=== PATIENT | male | born 1975 | race Caucasian/White ===

== ENCOUNTER → 2019-04-19 08:02 | Outpatient (BNVA) | payer BC, SELFPAY | PROVIDERS: Family Provider Family Medicine; PCP Family Medicine; Visit Provider Nurse Practitioner Family | DX: J10.1 Influenza due to other identified influenza virus with other respiratory manifestations (principal); R05 Cough | CPT/HCPCS: 87804 ==

== ENCOUNTER → 2019-09-18 15:34 | Outpatient (BNVA) | payer BC, SELFPAY | PROVIDERS: Family Provider Family Medicine; PCP Family Medicine; Referring Provider Nurse Practitioner Family; Visit Provider Orthopaedic Surgery | DX: M25.569 Pain in unspecified knee (principal); M17.12 Unilateral primary osteoarthritis, left knee | CPT/HCPCS: 73560; 73565 ==

== ENCOUNTER 2019-11-14 15:34 | Emergency (ER) | payer BC, SELFPAY ==
[2019-11-14 15:37] VITALS: BP 184/133; PULSE 95; RESP 16; TEMP 36.5; O2SAT 98; BMI 34.7
--- NOTE | 2019-11-14 15:47 | XR_ITS ---
WS: [id number] EXAM: LEFT HAND: 3 VIEWS DATE OF EXAMINATION: 11/14/2019, 1612 hours COMPARISON: None. HISTORY: Patient is 44 years old with multiple lacerations from a fan blade. FINDINGS: Bone density is normal in appearance. There are slight changes of arthritis at the triscaphe articula tion and first carpometacarpal articulation. Foreshortened fourth metacarpal bone is considered a con genital variant of normal. Ornamental jewelry on the fourth finger is seen. Bandages overlying the se cond and third fingers. Soft tissue injury involving the distal tip of the second finger noted. No ac parker bony injury seen. XR/XR hand LT min 3V* [id number] IMPRESSION: No acute bony abnormality. Soft tissue injury involving the second finger.
[2019-11-14] MEDS: acetaminophen 500 mg Tablet 1000 MG PO (15:53)
[2019-11-14] MEDS: lidocaine 1% INJ 20 mL INJECTION (16:57)
[2019-11-14 17:53] VITALS: BP 185/90; PULSE 87; RESP 18; O2SAT 98
--- NOTE | 2019-11-14 17:53 | W.ED.WOUNDLC ---
HPI - Wound/Laceration General: Chief Complaint: Wound/Laceration Stated Complaint: hand lac Time Seen by Provider: 11/14/19 15:40 History of Present Illness: HPI narrative: This patient is a 44 year old male who got his hand caught in a fan blade on a heating and cooling unit. Extremity Location: Left: hand Place: work Patient tetanus UTD: Yes Context: accidental Associated symptoms: Reports no associated symptoms Review of Systems Musc: Reports: extremity pain Neuro: Denies: dizziness Gabriel/Lymph: Denies: easy bruising or easy bleeding Physical Exam Const: COMMON NORMALS: no acute distress, patient oriented x3, no limitations and alert GENERAL APPEARANCE: cooperative and comfortable HENMT: HEAD & SCALP: normal to inspection FACE & SINUS: normal facial exam Eye: GENERAL EYE: appearance normal, both eyes and all related structures Neck/C-Spine: COMMON NORMALS: supple, no meningeal signs and no JVD Chest: COMMONS NORMALS: normal inspection of the chest Resp: COMMON NORMALS: normal respiratory effort, No use of accessory muscles and clear to auscultation bilaterally AUSCULTATION: clear to auscultation bilaterally Cardio: COMMON NORMALS: no JVD, regular rate and regular rhythm RATE: regular rate RHYTHM: regular rhythm Back/Pelvis: COMMON NORMALS: thoracic and lumbar spine normal to inspection Extremity: GENERAL: Yes normal exam except as noted LEFT UPPER EXTREMITY: Yes hand & digits (Multiple lacerations. One on the thumb on the thenar eminence. One on the third finger on the dorsal surface across the PIP joint. There is a second slightly distal to that and more on the radial side. On the index finger there is a distal piece of fingernail which is avulsed with exposed nailbed but no laceration. There is a superficial laceration on the ulnar aspect of the fourth digit.) Left hand and digits: Yes neurovascular exam (Intact with the exception of numbness on the tip of the third digit) and Yes tendon exam (Intact) Neuro: COMMON NORMALS: patient oriented x3, moves all extremities, no focal motor deficits and no sensory deficits noted SENSORIUM/ORIENTATION: Yes alert MENINGEAL SIGNS: Yes no meningeal signs Psych: COMMON NORMALS: mental status grossly normal, cooperative and normal affect Skin: COMMON NORMALS: no rashes or lesions noted and turgor normal GENERAL SKIN EXAM: no rashes or lesions noted and turgor normal Procedures Laceration Laceration 1: Site: hand (Thenar eminence, base of thumb) Side (If applicable): left Size (cm): 1.3 Description: linear Depth: simple, single layer Local Anesthetic: lidocaine 1% Pre-repair: wound explored, irrigated extensively and deep structures intact Skin layer closed with: nylon Size (cm): 4-0 Number of sutures: 4 Technique: simple, interrupted Laceration 2: Site: hand (Third digit, dorsal aspect of the PIP) Side (If applicable): left Size (cm): 3 Description: flap and irregular Pre-repair: wound explored, irrigated extensively and deep structures intact Skin layer closed with: nylon Size (cm): 4-0 Number of sutures: 7 Technique: simple, interrupted Subcutaneous layer closed with: vicryl Size: 4-0 Number of sutures: 2 Technique: simple, interrupted Laceration 3: Site: hand (Radial aspect of the third finger distal to the PIP) Side (If applicable): left Size (cm): 1 Description: linear Depth: simple, single layer Skin layer closed with: nylon Size (cm): 4-0 Number of sutures: 3 Technique: simple, interrupted Nerve Block Nerve Block 1: Time out performed: Yes Local Anesthetic: lidocaine 1% Amount of anesthesia used (mL): 2 Side: left Nerve Blocks: digital Procedure Successful: Yes Patient Tolerated Procedure: well Complications: none Course Vital Signs: Vital signs: Vital Signs Temperature 97.7 F 11/14/19 15:37 Pulse Rate 87 11/14/19 17:53 Respiratory Rate 18 11/14/19 17:53 Blood Pressure 185/90 11/14/19 17:53 Pulse Oximetry 98 11/14/19 17:53 Discharge Plan Discharge Patient Disposition: Home Clinical Impression: Laceration Hypertension Qualifiers: Hypertension type: unspecified Qualified Code(s): I10 - Essential (primary) hypertension Condition: Stable Prescriptions: New Augmentin 875-125 mg tablet 1 tab PO BID Qty: 20 RF: 0 Discharge Orders: Discharge Order (Routine); Ordered 11/14/19 Ordered By: Latoya Rubi Referrals: Naila Tejada DO [Primary Care Provider] - Discharge Diet: Usual diet Discharge Activity: Resume usual activity Patient Instructions: Laceration (ED), Hypertension (ED) Activity Restrictions/Additional Instructions: Keep the hand clean and dry, with the wounds covered whenever you doing something more like it dirty. Limit use of the left hand for a few days. Watch for signs of infection. Keep the hand elevated and apply ice to reduce swelling. Use ibuprofen and Tylenol for pain. Sutures should be removed in about 10 to 14 days. Please follow-up with primary care provider for evaluation of your elevated blood pressure. Discharge Date/Time: 11/14/19 17:58 Coding Level of Care Code ED Assembler Small Products for Montyg Fwd Exam Comprehensive
--- NOTE | 2019-11-14 17:56 | PC.NURSE ---
Patient cut his hand while working on a AC condenser, patient presented with multiple lacerations to his left hand. Laceration to his thumb, index and middle finger. Varies sizes and condition of lacerations.
== END 2019-11-14 17:58 | disposition home or self-care (01) ==
PROVIDERS: Emergency Provider Emergency Medicine; PCP Family Medicine
DX: S61.012A Laceration without foreign body of left thumb without damage to nail, initial encounter (principal); S61.213A Laceration without foreign body of left middle finger without damage to nail, initial encounter; S61.311A Laceration without foreign body of left index finger with damage to nail, initial encounter; S61.215A Laceration without foreign body of left ring finger without damage to nail, initial encounter; I10 Essential (primary) hypertension; W31.89XA Contact with other specified machinery, initial encounter
CPT/HCPCS: 12002; 12345; 73130; 99282; 99283

== ENCOUNTER → 2020-01-03 11:17 | Outpatient (BNVA) | payer BC, SELFPAY | PROVIDERS: PCP Family Medicine; Visit Provider Nurse Practitioner Family | DX: Z11.59 Encounter for screening for other viral diseases (principal) | CPT/HCPCS: 87635 ==

== ENCOUNTER → 2020-09-08 13:15 | Outpatient (BNVA) | payer BC, SELFPAY | PROVIDERS: PCP Family Medicine; Visit Provider Registered Nurse Neonatal Intensive Care | DX: Z20.822 Contact with and (suspected) exposure to COVID-19 (principal) | CPT/HCPCS: 87635 ==

== ENCOUNTER → 2020-09-18 13:15 | Outpatient (BNVA) | payer BC, SELFPAY | PROVIDERS: PCP Family Medicine; Visit Provider Registered Nurse Neonatal Intensive Care | DX: S89.91XA Unspecified injury of right lower leg, initial encounter (principal); X58.XXXA Exposure to other specified factors, initial encounter | CPT/HCPCS: 73610 ==

== ENCOUNTER 2020-12-12 14:47 | Emergency (ER) | payer BC, SELFPAY ==
[2020-12-12 15:17] VITALS: BP 186/101; PULSE 73; RESP 18; TEMP 36.8; O2SAT 98; BMI 35.0
--- NOTE | 2020-12-12 15:39 | W.ED.CHESTPA ---
HPI - Chest Pain General: Chief Complaint: Chest Pain Stated Complaint: COVID+/INFUSION THIS AFTERNOON:HTN;SHAKY;SWEATY Time Seen by Provider: 12/12/20 15:10 History of Present Illness: HPI narrative: 45-year-old male presents to the emergency room with complaints of chest discomfort. No cardiac history. He was in the infusion clinic received Regeneron after that he began to have a little bit of chest tightness. He still has a lot of myalgias and low-grade fever. He is not complaining of any shortness of breath. MD complaint: chest heaviness and chest discomfort Onset (ago): minute(s) Timing of current episode: episodic Onset: during rest Pain location: left chest Pain radiation: none and right arm Severity: mild Quality: heaviness Relieving factors: nothing Exacerbating factors: nothing Associated symptoms: Deny abdominal pain, diaphoresis, dyspnea, fever(s), leg edema, nausea, palpitations, sense of impending doom, syncope or vomiting Treatment prior to arrival: none Review of Systems Const: Denies: fever(s) or diaphoresis ENMT: Denies: throat pain, ear or mastoid pain, nasal discharge or nasal congestion Card: Denies: palpitations or syncope Resp: Denies: dyspnea GI: Denies: abdominal pain, nausea or vomiting : Denies: flank pain, dysuria, urinary frequency or urinary urgency Skin/Breast: Denies: rash or pruritus PFSH ED PFSH: Social History Smoking and tobacco status: never smoked Quit status (tobacco): not considering quitting Alcohol intake: never Desire information about alcohol rehabilitation?: No Desire information about substance/drug rehabilitation?: No Physical Exam Const: COMMON NORMALS: no acute distress GENERAL APPEARANCE: cooperative and comfortable ORIENTATION/CONSCIOUSNESS: Yes awake and Yes oriented to time HENMT: COMMON NORMALS: normocephalic, atraumatic and hearing grossly normal bilaterally HEAD & SCALP: normocephalic and atraumatic Neck/C-Spine: COMMON NORMALS: no JVD Resp: COMMON NORMALS: normal respiratory effort, No retractions, No use of accessory muscles and clear to auscultation bilaterally AUSCULTATION: clear to auscultation bilaterally Cardio: COMMON NORMALS: no JVD, regular rate, regular rhythm and No murmurs present (Cardio) RATE: regular rate RHYTHM: regular rhythm GI: COMMON NORMALS: Soft to palpation and No hepatosplenomegaly present AUSCULTATION: Yes normoactive bowel sounds PALPATION: Yes Soft to palpation, No Tenderness to palpation present (GI), No Guarding due to palpation present (GI) and Yes No hepatosplenomegaly present Extremity: COMMON NORMALS: normal to inspection, capillary refill normal, no clubbing, cyanosis or edema, no calf tenderness and no pedal edema Neuro: SENSORIUM/ORIENTATION: Yes oriented to time Skin: COMMON NORMALS: no rashes or lesions noted GENERAL SKIN EXAM: no rashes or lesions noted Course Vital Signs: Vital signs: Vital Signs Temperature 98.2 F 12/12/20 15:17 Pulse Rate 68 12/12/20 17:37 Respiratory Rate 18 12/12/20 17:37 Blood Pressure 155/97 12/12/20 17:37 Pulse Oximetry 97 12/12/20 17:37 MDM - Chest Pain MDM Narrative: Medical decision making narrative: Labs imaging and EKG reviewed on the chart. Is not having any further symptoms he was pretty hypertensive when he first arrived. We will discharge him on amlodipine 5 mg daily encouraged him to follow-up with his primary care doc within the week to reevaluate blood pressure return if has any further problems. Lab Data: Labs: Lab Results 12/12/20 12/12/20 12/12/20 15:38 15:38 15:38 WBC 5.3 10^3/uL 10^3/ uL (4.0-10.0) RBC 5.53 10^6/uL H 10 ^6/uL (4.1-5.3) Hgb 16.8 g/dL H g/dL (11.7-16.6) Hct 46.3 % % (42.0-52.0) MCV 83.7 fl fl (80-94) MCH 30.4 pg pg (28.0-34.0) MCHC 36.3 g/dL H g/dL (30.0-36.0) RDW 12.0 % L % (12.1-15.1) Plt Count 209 10^3/cmm 10^3 /cmm (130-400) MPV 12.6 fL H fL (7.4-10.4) Neut % (Auto) 57.6 % % Lymph % (Auto) 27.6 % % [place] % (Auto) 13.0 % % Eos % (Auto) 0.8 % % Baso % (Auto) 0.8 % % Neut # (Auto) 3.05 10^3/uL 10^3 /uL (1.8-7.7) Lymph # (Auto) 1.5 10^3/uL 10^3/ uL (0.8-4.8) [place] # (Auto) 0.7 10^3/uL 10^3/ uL (0.2-0.9) Eos # (Auto) 0.0 10^3/uL 10^3/ uL (0.0-0.8) Baso # (Auto) 0.0 10^3/uL 10^3/ uL (0.0-0.1) Nucleated RBC % (a uto) 0 % % Nucleated RBCs # 0.0 /100WBC /100W BC Sodium 138 mmol/L mmol/L (136-145) Potassium 3.9 mmol/L mmol/L (3.5-5.1) Chloride 102 mmol/L mmol/L (98-107) Carbon Dioxide 23 mmol/L mmol/L (22-29) Anion Gap 16.9 (5-19) BUN 11 mg/dL mg/dL (6-20) Creatinine 0.7 mg/dL mg/dL (0.7-1.2) GFR Calculation 123.1 mL/min mL/m in (90-130) Glucose 80 mg/dL mg/dL (65-115) Calculated Osmolal ity 284 mOsm/kg L mOs m/kg (285-295) Calcium 8.7 mg/dL mg/dL (8.5-10.5) Total Bilirubin 0.5 mg/dL mg/dL (0.15-1.2) AST 67 U/L H U/L (0-40) ALT 99 U/L H U/L (0-41) Alkaline Phosphata se 148 IU/L H IU/L (40-130) Creatine Kinase 101 U/L U/L (39-308) Troponin T Baselin e 6 ng/L ng/L (0-15) Total Protein 6.6 g/dL g/dL (6.6-8.7) Albumin 4.3 g/dL g/dL (3.5-5.2) Globulin 2.3 g/dL g/dL (1.3-4.6) Discharge Plan Discharge Patient Disposition: Home Clinical Impression: COVID-19, Benign essential HTN Condition: Stable Prescriptions: New amlodipine 5 mg tablet 5 mg PO DAILY Qty: 30 RF: 0 Discharge Orders: Discharge ED (Routine); Ordered 12/12/20 Ordered By: Sukhdeep Villarreal Referrals: Naila Tejada DO [Primary Care Provider] - Discharge Diet: Usual diet Discharge Activity: Increase activity as tolerated Patient Instructions: Opioid Safety Coding Level of Care Code ED Nonprofit Fundraiser for Jaxon Fwd Exam Comprehensive
--- NOTE | 2020-12-12 15:47 | XR_ITS ---
WS: [id number] XR chest 1V portable [id number] REASON FOR EXAM: dyspnea/cough FINDINGS: The heart and mediastinum are within normal limits. Calcified granulomatous disease in both hemithoraces. No active pulmonary parenchymal pleural disease. No significant abnormality of the bony thorax. XR/XR chest 1V portable [id number] IMPRESSION: No acute chest abnormality.
--- NOTE | 2020-12-12 15:50 | ECG_ITS ---
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 Measurements Intervals [place] Rate: 72 P: 44 CO: 175 QRS: 19 QRSD: 89 T: 32 QT: 379 QTc: 415 Interpretive Statements SINUS RHYTHM No previous ECG available for comparison Electronically Signed On 12-12-2020 18:30:26 CDT by Gallito Torres M.D. [id number] f
[2020-12-12 17:14] VITALS: BP 158/103; PULSE 70; RESP 18; O2SAT 95
[2020-12-12 17:19] LABS: Albumin Level 4.3 g/dL (3.5-5.2); Alkaline Phosphatase 148 IU/L (40-130); Blood Urea Nitrogen 11 mg/dL (6-20); Calcium 8.7 mg/dL (8.5-10.5); Carbon Dioxide 23 mmol/L (22-29); Chloride 102 mmol/L (98-107); Creatine Phosphokinase 101 U/L (39-308); Globulin 2.3 g/dL (1.3-4.6); Glomerular Filtration Rate 123.1 mL/min (90-130); Glucose 80 mg/dL (65-115); Osmolality Calculated 284 mOsm/kg (285-295); Sodium 138 mmol/L (136-145); Total Bilirubin 0.5 mg/dL (0.15-1.2); Total Protein 6.6 g/dL (6.6-8.7); Troponin(5th) Baseline 6 ng/L (0-15)
[2020-12-12 17:20] LABS: Anion Gap 16.9 (5-19); Potassium 3.9 mmol/L (3.5-5.1)
[2020-12-12] MEDS: amlodipine 10 mg Tablet PO (17:22)
[2020-12-12 17:23] LABS: Basophils % 0.8 %; Eosinophils % 0.8 %; Hematocrit 46.3 % (42.0-52.0); Hemoglobin 16.8 g/dL (11.7-16.6); Lymphocytes # 1.5 10^3/uL (0.8-4.8); Lymphocytes % 27.6 %; Mean Corpuscular HGB Conc 36.3 g/dL (30.0-36.0); Mean Corpuscular Hemoglobin 30.4 pg (28.0-34.0); Mean Corpuscular Volume 83.7 fl (80-94); Mean Platelet Volume 12.6 fL (7.4-10.4); Monocytes # 0.7 10^3/uL (0.2-0.9); Neutrophils # 3.05 10^3/uL (1.8-7.7); Neutrophils % 57.6 %; Nucleated Red Blood Cells % 0 %; Platelet Count 209 10^3/cmm (130-400); Red Blood Count 5.53 10^6/uL (4.1-5.3); White Blood Count 5.3 10^3/uL (4.0-10.0)
[2020-12-12 17:30] LABS: Alanine Aminotransferase 99 U/L (0-41); Aspartate Amino Transferase 67 U/L (0-40)
[2020-12-12 17:37] VITALS: BP 155/97; PULSE 68; RESP 18; O2SAT 97
== END 2020-12-12 17:37 | disposition home or self-care (01) ==
PROVIDERS: Emergency Provider Family Medicine; PCP Family Medicine
DX: U07.1 COVID-19 (principal); I10 Essential (primary) hypertension
CPT/HCPCS: 71045; 80053; 82550; 84484; 85025; 93005; 99283

== ENCOUNTER → 2020-12-31 17:00 | Outpatient (BNVA) | payer BC, SELFPAY | PROVIDERS: PCP Family Medicine; Visit Provider Family Medicine | DX: Z13.220 Encounter for screening for lipoid disorders (principal); I10 Essential (primary) hypertension; Z13.6 Encounter for screening for cardiovascular disorders | CPT/HCPCS: 80061 ==

== ENCOUNTER → 2021-03-11 14:56 | Outpatient (BNVA) | payer BC, SELFPAY | PROVIDERS: PCP Family Medicine; Visit Provider Nurse Practitioner Family | DX: Z20.822 Contact with and (suspected) exposure to COVID-19 (principal) | CPT/HCPCS: 87635 ==

== ENCOUNTER → 2022-01-28 08:42 | Outpatient (BNVA) | payer BC, SELFPAY | PROVIDERS: PCP Family Medicine; Visit Provider Family Medicine | DX: I10 Essential (primary) hypertension (principal); Z13.220 Encounter for screening for lipoid disorders; Z13.6 Encounter for screening for cardiovascular disorders; R53.83 Other fatigue | CPT/HCPCS: 80053; 80061; 84443 ==

== ENCOUNTER 2023-06-03 18:49 | Emergency (ER) | payer OTHER, SELFPAY ==
[2023-06-03 18:50] VITALS: BP 173/132; PULSE 90; RESP 18; TEMP 36.7; O2SAT 100; BMI 36.0
--- NOTE | 2023-06-03 18:51 | ECG_ITS ---
[facility] Test Date: 2023-06-03 Pat Name: James Rdz Department: Room: Gender: Male Broadcast Director Operations: : 1975 Requested By: Rupal Sanchez Order Number: [id number] Chelsie MD: Gallito Torres M.D. Measurements Intervals [place] Rate: 92 P: 16 MI: 162 QRS: 4 QRSD: 90 T: 46 QT: 353 QTc: 439 Interpretive Statements SINUS RHYTHM Compared to ECG 12/12/2020 15:20:28 No significant changes Electronically Signed On 06-05-2023 11:12:49 CDT by Gallito Torres M.D. [id number] f
--- NOTE | 2023-06-03 18:58 | XRR_ITS ---
PROCEDURE INFORMATION: Exam: XR Chest Exam date and time: 06/03/2023 7:02 PM Age: 48 years old Clinical indication: Chest pressure; Patient HX: C/O chest pain TECHNIQUE: Imaging protocol: Radiologic exam of the chest. Views: 1 view. COMPARISON: CR XR chest 1V portable [id number] 12/12/2020 3:57 PM FINDINGS: Lungs: Unremarkable. No consolidation. Pleural spaces: Unremarkable. No pleural effusion. No pneumothorax. Heart/Mediastinum: Unremarkable. No cardiomegaly. Bones/joints: Unremarkable. XR/XR chest 1V portable [id number] IMPRESSION: No acute findings.
--- NOTE | 2023-06-03 19:01 | W.ED.CHESTPA ---
HPI - Chest Pain General: Chief Complaint: Chest Pain Stated Complaint: High Blood Pressure\Chest Pains Time Seen by Provider: 06/03/23 18:55 History of Present Illness: 48-year-old man who presents the emergency room with chest pain and hypertension. He says he has not been feeling well for the last couple days. He has had some congestion. The chest pain has been present for couple of days. Left-sided and sharp. Mild cough. Checked his blood pressure at home and it was 220/115. At that point his decided he needed to come to the emergency room. He takes amlodipine at night. No other medications. No heart disease. No altered mental status. No fevers. He did miss work yesterday because he did not feel well. Review of Systems Narrative: Constitutional symptoms: Negative except as documented in HPI. Skin symptoms: Negative except as documented in HPI. Eye symptoms: Negative except as documented in HPI. ENMT symptoms: Negative except as documented in HPI. Respiratory symptoms: Negative except as documented in HPI. Cardiovascular symptoms: Negative except as documented in HPI. Gastrointestinal symptoms: Negative except as documented in HPI. Genitourinary symptoms: Negative except as documented in HPI. Musculoskeletal symptoms: Negative except as documented in HPI. Neurologic symptoms: Negative except as documented in HPI. Psychiatric symptoms: Negative except as documented in HPI. Endocrine symptoms: Negative except as documented in HPI. [facility] ED PFSH: Social History Smoking and tobacco/nicotine status: never used tobacco/nicotine Quit status (tobacco/nicotine): not considering quitting Alcohol intake: never Substance/Drug Use: never Physical Exam Narrative: EXAM NARRATIVE: General: Alert, no acute distress. Skin: Warm, dry. Head: Normocephalic, atraumatic. Neck: Supple, trachea midline. Eye: Extraocular movements are intact. Ears, nose, mouth and throat: mucosa moist. Cardiovascular: Regular, Normal peripheral perfusion. Respiratory: Lungs are clear to auscultation, respirations are non-labored, breath sounds are equal, Symmetrical chest wall expansion. Gastrointestinal: Soft, Nontender, Non distended, Normal bowel sounds. Musculoskeletal: Normal ROM, no deformity. Neurological: Alert and oriented, No focal neurological deficit observed. Psychiatric: Cooperative, appropriate mood & affect. Course Vital Signs: Vital signs: Vital Signs Temperature 98.0 F 06/03/23 18:50 Pulse Rate 79 06/03/23 20:03 Respiratory Rate 13 06/03/23 19:41 Blood Pressure 167/87 06/03/23 19:41 Pulse Oximetry 96 06/03/23 20:03 Oxygen Delivery Me thod Room Air 06/03/23 18:50 MDM - Chest Pain Medical Decision Making Differential diagnosis for patient with chest pain includes but is not limited to and based on the above HPI, review of systems and physical exam: Pneumonia. unstable angina. angina. Acute coronary syndrome / GA. Pulmonary embolism. Costochondritis / musculoskeletal. Pleurisy. Pericarditis. Esophageal spasm. Pancreatis. Cholecystitis. Workup: Lab work, chest X-ray and EKG ordered to evaluate, rule in and rule out above pathologies. Lab Review: Laboratory results were reviewed and interpreted by myself the emergency room physician. No leukocytosis. Hemoglobin is 15.5. BUN and creatinine are 11 and 0.8. Flu and COVID are negative. Serial troponins are negative. EKG: Time 1851 PM rate 92. Normal sinus rhythm, No ST-T changes, no ectopy, normal DE & QRS intervals, This was reviewed and interpreted by myself the ER physician at 1855 PM. Chest x-ray: No acute process. No infiltrate. No pneumothorax. No cardiomegaly. This was reviewed and interpreted by myself the ER physician. Reexamination: Patient is in no distress. He does have some tenderness to palpation of his chest wall. No increased work of breathing. No altered mental status. Emergency Department Assessment of Chest Pain Score (EDACS) from [email or web address] on 06/03/2023 All calculations should be rechecked by clinician prior to use RESULT SUMMARY: 4 points Low risk by the EDACS Score. If the patient also has: (1) EKG without new ischemic changes and (2) negative initial and 2-hour troponins, then this patient is safe for discharge to early outpatient follow-up investigation (or proceed to earlier inpatient testing). If EKG with ischemic changes or positive troponin, they are not low risk and require normal risk stratification. INPUTS: Age ?> 48 years Sex ?> 6 = Male Known coronary artery disease or >= risk factors ?> 0 = No Diaphoresis ?> 0 = No Pain radiates to arm, shoulder, neck, or jaw ?> 0 = No Pain occurred or worsened with inspiration ?> 0 = No Pain is reproduced by palpation ?> -6 = Yes Lab Data 06/03/23 19:10 06/03/23 19:10 Radiology Impressions Chest X-Ray 06/03/23 18:58 IMPRESSION: No acute findings. Laboratory Results WBC 9.78 10^3/uL (3.29-11.43) 06/03/23 19:10 RBC 5.09 10^6/uL (3.85-5.65) 06/03/23 19:10 Hgb 15.50 g/dL (11.27-16.99) 06/03/23 19:10 Hct 43.9 % (37-53) 06/03/23 19:10 MCV 86.2 fl (82-101) 06/03/23 19:10 MCH 30.5 pg (27-33) 06/03/23 19:10 MCHC 35.3 g/dL (30-55) 06/03/23 19:10 RDW 11.7 % (12.1-15.1) L 06/03/23 19:10 Plt Count 267 10^3/cmm (157-399) 06/03/23 19:10 MPV 10.8 fL (7.4-10.4) H 06/03/23 19:10 Neut % (Auto) 60.7 % 06/03/23 19:10 Lymph % (Auto) 27.1 % 06/03/23 19:10 [place] % (Auto) 10.3 % 06/03/23 19:10 Eos % (Auto) 0.8 % 06/03/23 19:10 Baso % (Auto) 0.7 % 06/03/23 19:10 Neut # (Auto) 5.93 10^3/uL (1.8-7.7) 06/03/23 19:10 Lymph # (Auto) 2.7 10^3/uL (0.8-4.8) 06/03/23 19:10 [place] # (Auto) 1.0 10^3/uL (0.2-0.9) H 06/03/23 19:10 Eos # (Auto) 0.1 10^3/uL (0.0-0.8) 06/03/23 19:10 Baso # (Auto) 0.1 10^3/uL (0.0-0.1) 06/03/23 19:10 Nucleated RBC % (auto) 0 % 06/03/23 19:10 Nucleated RBCs # 0.0 /100WBC 06/03/23 19:10 Sodium 140 mmol/L (136-145) 06/03/23 19:10 Potassium 3.3 mmol/L (3.5-5.1) L 06/03/23 19:10 Chloride 103 mmol/L (98-107) 06/03/23 19:10 Carbon Dioxide 23 mmol/L (22-29) 06/03/23 19:10 Anion Gap 17.3 (5-19) 06/03/23 19:10 BUN 11 mg/dL (6-20) 06/03/23 19:10 Creatinine 0.8 mg/dL (0.7-1.2) 06/03/23 19:10 GFR Calculation 104.1 mL/min (90-130) 06/03/23 19:10 Glucose 98 mg/dL (65-115) 06/03/23 19:10 Calculated Osmolality 289 mOsm/kg (285-295) 06/03/23 19:10 Calcium 9.1 mg/dL (8.5-10.5) 06/03/23 19:10 Total Bilirubin 1.4 mg/dL (0.15-1.2) H 06/03/23 19:10 AST 22 U/L (0-40) 06/03/23 19:10 ALT 30 U/L (0-41) 06/03/23 19:10 Alkaline Phosphatase 143 U/L (40-130) H 06/03/23 19:10 Troponin T Baseline 7 ng/L (0-15) 06/03/23 19:10 Troponin T 120 Minute 6.25 ng/L (0-15) 06/03/23 20:31 Delta Troponin T -0.75 ABS# (0-10) L 06/03/23 20:31 Total Protein 6.4 g/dL (6.6-8.7) L 06/03/23 19:10 Albumin 4.6 g/dL (3.5-5.2) 06/03/23 19:10 Globulin 1.8 g/dL (1.3-4.6) 06/03/23 19:10 Influenza Type A Ag negative (Negative) 06/03/23 19:32 Influenza Type B Ag negative (Negative) 06/03/23 19:32 SARS-CoV-2 Ag (Rapid) negative (Negative) 06/03/23 19:32 All radiology interpretation(s) finalized by discharge Other Data Assessment and plan: Chest pain non-cardiac -Edac's score was negative/low risk. Patient has negative serial troponins. No ischemic changes on EKG. He is safe for discharge with early outpatient follow-up. - Discharged home - Discussed findings and plan with patient. Answered any questions. - All laboratory values were reviewed and interpreted personally by myself, the ER physician - All imaging was reviewed and interpreted personally by myself, the ER physician. - Evaluation and treatment of this problem were appropriate in the emergency setting Discharge Plan Discharge Patient Disposition: Home Clinical Impression: Chest pain, non-cardiac Condition: Stable Prescriptions: No Action amlodipine 5 mg tablet See Rx Instructions .ROUTE .COMPLEX Qty: 90 3RF Dose Instruction: TAKE ONE TABLET BY MOUTH EVERY DAY Rx Instructions: TAKE ONE TABLET BY MOUTH EVERY DAY Discharge Orders: Discharge ED (Routine); Ordered 06/03/23 Ordered By: Rupal Ring Referrals: Freedom Samuel, [Primary Care Provider] - (Keep your scheduled appointment with your primary care physician. You have been screened and evaluated and felt safe for discharge. Health conditions do change or evolve sometimes and as such it is important that you follow up with your Primary Doctor to be re checked, 3-5 days is a general good time frame for follow up. You are always welcome to return to the ED for re assessment if your symptoms are worsening or you have new concerns) Discharge Diet: Usual diet Discharge Activity: Resume usual activity Patient Instructions: Noncardiac Chest Pain (ED) Coding Level of Care Code ED Accounting Teacher for Jaxon Nguyen
[2023-06-03 19:17] LABS: Basophils # 0.1 10^3/uL (0.0-0.1); Basophils % 0.7 %; Eosinophils # 0.1 10^3/uL (0.0-0.8); Eosinophils % 0.8 %; Hematocrit 43.9 % (37-53); Lymphocytes # 2.7 10^3/uL (0.8-4.8); Lymphocytes % 27.1 %; Mean Corpuscular HGB Conc 35.3 g/dL (30-55); Mean Corpuscular Hemoglobin 30.5 pg (27-33); Mean Corpuscular Volume 86.2 fl (82-101); Mean Platelet Volume 10.8 fL (7.4-10.4); Monocytes % 10.3 %; Neutrophils # 5.93 10^3/uL (1.8-7.7); Neutrophils % 60.7 %; Nucleated Red Blood Cells % 0 %; Platelet Count 267 10^3/cmm (157-399); Red Blood Count 5.09 10^6/uL (3.85-5.65); Red Cell Distribution Width 11.7 % (12.1-15.1); White Blood Count 9.78 10^3/uL (3.29-11.43)
[2023-06-03 19:18] VITALS: BP 177/95
[2023-06-03] MEDS: cloNIDine 0.1 mg Tablet 0.100000000000000006 MG PO (19:18)
[2023-06-03 19:35] LABS: Troponin(5th) Baseline 7 ng/L (0-15)
[2023-06-03 19:37] LABS: Alanine Aminotransferase 30 U/L (0-41); Albumin Level 4.6 g/dL (3.5-5.2); Alkaline Phosphatase 143 U/L (40-130); Anion Gap 17.3 (5-19); Aspartate Amino Transferase 22 U/L (0-40); Blood Urea Nitrogen 11 mg/dL (6-20); Calcium 9.1 mg/dL (8.5-10.5); Carbon Dioxide 23 mmol/L (22-29); Chloride 103 mmol/L (98-107); Creatinine Clr Calc Pharmacy 132.8246; Globulin 1.8 g/dL (1.3-4.6); Glomerular Filtration Rate 104.1 mL/min (90-130); Glucose 98 mg/dL (65-115); Osmolality Calculated 289 mOsm/kg (285-295); Potassium 3.3 mmol/L (3.5-5.1); Sodium 140 mmol/L (136-145); Total Bilirubin 1.4 mg/dL (0.15-1.2); Total Protein 6.4 g/dL (6.6-8.7)
[2023-06-03 19:41] VITALS: BP 167/87; PULSE 79; RESP 13; O2SAT 95
[2023-06-03 20:03] VITALS: PULSE 79; O2SAT 96
[2023-06-03 20:26] LABS: Influenza A by IFA negative (Negative); Influenza B by IFA negative (Negative); SARS Covid-2 Antigen negative (Negative)
[2023-06-03 20:57] LABS: Troponin 5 2HR 6.25 ng/L (0-15); Troponin 5 2HR Delta -0.75 ABS# (0-10)
[2023-06-03 21:01] VITALS: BP 146/93; PULSE 86; RESP 13; O2SAT 96
[2023-06-03 21:26] VITALS: BP 128/84; PULSE 84; RESP 16; TEMP 36.7; O2SAT 98
== END 2023-06-03 21:27 | disposition home or self-care (01) ==
PROVIDERS: Emergency Provider Emergency Medicine; PCP Family Medicine
DX: R07.89 Other chest pain (principal); Z11.52 Encounter for screening for COVID-19
CPT/HCPCS: 36415; 71045; 80053; 84484; 85025; 87426; 87804; 93005; 99285

== ENCOUNTER 2024-01-12 07:53 | Emergency (ER) | payer OTHER, SELFPAY ==
[2024-01-12 07:55] VITALS: BP 163/120; PULSE 92; RESP 18; TEMP 36.7; O2SAT 98; BMI 35.2
--- NOTE | 2024-01-12 07:55 | ECG_ITS ---
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 Measurements Intervals [place] Rate: 87 P: 43 FL: 153 QRS: -1 QRSD: 93 T: 46 QT: 343 QTc: 413 Interpretive Statements SINUS RHYTHM Compared to ECG 06/03/2023 18:51:20 No significant changes Electronically Signed On 01-12-2024 21:36:40 CABLE TELEVISION PROGRAM DIRECTOR by Edis Sabillon M.D. [id number] f
--- NOTE | 2024-01-12 07:55 | XRR_ITS ---
PROCEDURE INFORMATION: Exam: XR Chest Exam date and time: 01/12/2024 8:12 AM Age: 48 years old Clinical indication: Pain; Angina pectoris; Additional info: Cp TECHNIQUE: Imaging protocol: Radiologic exam of the chest. Views: 1 view. COMPARISON: CR XR chest 1V portable [id number] 06/03/2023 7:02 PM FINDINGS: Lungs: Unremarkable. No consolidation. Pleural spaces: Unremarkable. No pleural effusion. No pneumothorax. Heart/Mediastinum: Unremarkable. No cardiomegaly. Bones/joints: Unremarkable. XR/XR chest 1V portable [id number] IMPRESSION: No acute findings.
--- NOTE | 2024-01-12 08:02 | ED_ITS ---
HPI - Chest Pain 2 General: Chief Complaint: Chest Pain Stated Complaint: cp, nausea Time Seen by Provider: 01/12/24 07:56 Source: patient Mode of arrival: ambulatory Limitations: no limitations History of Present Illness: 48-year-old male states has been having chest pain for the last 2 days he states that today sharp pain pressure pain in his left chest that radiates to his neck states it has been off and on over the last 2 days he has had some diaphoresis denies nausea shortness of breath. He denies any worsening improving factors. He denies any abdominal pain or vomiting Associated symptoms: Deny abdominal pain, dyspnea, fever(s), nausea or vomiting Related Data Home Medications Medication Instructions Recorded Confirmed enalapril maleate 10 mg tablet 10 mg PO DAILY 01/12/24 01/12/24 Allergies Allergy/AdvReac Type Severity Reaction Status Date / Time No Known Allergies Allergy Verified 07/27/23 08:45 Review of Systems 2 Const: Denies: fever(s), chills, body aches or change in appetite ENMT: Denies: throat pain or dental pain Card: Reports: chest pain Resp: Denies: dyspnea GI: Denies: abdominal pain, nausea, vomiting or diarrhea Musc: Denies: neck pain or back pain Skin/Breast: Denies: rash Neuro: Denies: headache(s) PFSH ED 2 PFSH: Social History Smoking and tobacco/nicotine status: never used tobacco/nicotine Quit status (tobacco/nicotine): not considering quitting Alcohol intake: never Substance/Drug Use: never Physical Exam 2 Const: COMMON NORMALS: no acute distress, patient oriented x3 and healthy appearing HENMT: COMMON NORMALS: normocephalic and atraumatic HEAD & SCALP: n ormocephalic and atraumatic Neck/C-Spine: COMMON NORMALS: full ROM and supple Chest: COMMONS NORMALS: normal inspection of the chest Resp: COMMON NORMALS: normal respiratory effort, No retractions, No use of accessory muscles and clear to auscultation bilaterally AUSCULTATION: clear to auscultation bilaterally Cardio: COMMON NORMALS: regular rate, regular rhythm and No murmurs present (Cardio) RATE: regular rate RHYTHM: regular rhythm GI: COMMON NORMALS: Normal to inspection, nondistended, normoactive bowel sounds present, Soft to palpation, non-tender and no masses PALPATION: Yes Soft to palpation Extremity: COMMON NORMALS: normal to inspection and full ROM Neuro: COMMON NORMALS: patient oriented x3, moves all extremities and no focal motor deficits Psych: COMMON NORMALS: mental status grossly normal, Normal thought process present and cooperative THOUGHT PROCESS: Normal thought process present Skin: COMMON NORMALS: no rashes or lesions noted and no wounds GENERAL SKIN EXAM: no rashes or lesions noted Course 2 Vital Signs: Vital signs: Vital Signs Temperature 98.0 F 01/12/24 07:55 Pulse Rate 67 01/12/24 11:08 Respiratory Rate 12 01/12/24 09:48 Blood Pressure 100/68 01/12/24 11:08 Pulse Oximetry 95 01/12/24 11:08 Oxygen Delivery Me thod Room Air 01/12/24 07:55 MDM - Chest Pain Medical Decision Making Patient presents for chest pain is since resolved blood work here is normal both tropes are negative no signs of ACS or pulm embolism or aortic dissection he is follow-up with PCP will get cardiology follow-up as well he is return if worsening he understands agrees to plan. Medical Records I reviewed the patient's medical records. Lab Data I reviewed the patient's lab results. 01/12/24 08:05 01/12/24 08:05 Radiology Impressions Chest X-Ray 01/12/24 07:55 IMPRESSION: No acute findings. Laboratory Results WBC 7.19 10^3/uL (3.29-11.43) 01/12/24 08:05 RBC 5.89 10^6/uL (3.85-5.65) H 01/12/24 08:05 Hgb 17.10 g/dL (11.27-16.99) H 01/12/24 08:05 Hct 50.6 % (37-53) 01/12/24 08:05 MCV 85.9 fl (82-101) 01/12/24 08:05 MCH 29.0 pg (27-33) 01/12/24 08:05 MCHC 33.8 g/dL (30-55) 01/12/24 08:05 RDW 11.9 % (12.1-15.1) L 01/12/24 08:05 Plt Count 264 10^3/cmm (157-399) 01/12/24 08:05 MPV 11.2 fL (7.4-10.4) H 01/12/24 08:05 Neut % (Auto) 60.0 % 01/12/24 08:05 Lymph % (Auto) 30.6 % 01/12/24 08:05 [place] % (Auto) 7.8 % 01/12/24 08:05 Eos % (Auto) 0.8 % 01/12/24 08:05 Baso % (Auto) 0.7 % 01/12/24 08:05 Neut # (Auto) 4.31 10^3/uL (1.8-7.7) 01/12/24 08:05 Lymph # (Auto) 2.2 10^3/uL (0.8-4.8) 01/12/24 08:05 [place] # (Auto) 0.6 10^3/uL (0.2-0.9) 01/12/24 08:05 Eos # (Auto) 0.1 10^3/uL (0.0-0.8) 01/12/24 08:05 Baso # (Auto) 0.1 10^3/uL (0.0-0.1) 01/12/24 08:05 Nucleated RBC % (auto) 0 % 01/12/24 08:05 Nucleated RBCs # 0.0 /100WBC 01/12/24 08:05 PT 13.00 SECONDS (12.1-14.9) 01/12/24 08:05 INR 0.96 (0.8-1.2) 01/12/24 08:05 Sodium 140 mmol/L (136-145) 01/12/24 08:05 Potassium 4.1 mmol/L (3.5-5.1) 01/12/24 08:05 Chloride 103 mmol/L (98-107) 01/12/24 08:05 Carbon Dioxide 25 mmol/L (22-29) 01/12/24 08:05 Anion Gap 16.1 (5-19) 01/12/24 08:05 BUN 11 mg/dL (6-20) 01/12/24 08:05 Creatinine 1.0 mg/dL (0.7-1.2) 01/12/24 08:05 GFR Calculation 80.4 mL/min (90-130) L 01/12/24 08:05 Glucose 127 mg/dL (65-115) H 01/12/24 08:05 Calculated Osmolality 291 mOsm/kg (285-295) 01/12/24 08:05 Calcium 9.0 mg/dL (8.5-10.5) 01/12/24 08:05 Total Bilirubin 0.9 mg/dL (0.15-1.2) 01/12/24 08:05 AST 23 U/L (0-40) 01/12/24 08:05 ALT 31 U/L (0-41) 01/12/24 08:05 Alkaline Phosphatase 144 U/L (40-130) H 01/12/24 08:05 Troponin T Baseline 7 ng/L (0-15) 01/12/24 08:05 Troponin T 120 Minute 6.00 ng/L (0-15) 01/12/24 10:45 Delta Troponin T -1.00 ABS# (0-10) L 01/12/24 10:45 Total Protein 7.1 g/dL (6.6-8.7) 01/12/24 08:05 Albumin 4.6 g/dL (3.5-5.2) 01/12/24 08:05 Globulin 2.5 g/dL (1.3-4.6) 01/12/24 08:05 Lipase 80 U/L (13-60) H 01/12/24 08:05 All radiology interpretation(s) finalized by discharge EKG Data EKG 1: I personally reviewed and interpreted this EKG as follows: EKG interpretation date: 01/12/24 EKG interpretation time: 07:57 Interpretation: nsr hr [address] elevation qrs 93 qtc 387 EKG 2: I personally reviewed and interpreted this EKG as follows: EKG interpretation date: 01/12/24 EKG interpretation time: 10:24 Interpretation: nsr hr [address] elevation qrs 88 qtc 392 Clincial Decision Support The following clinical decision support tools were used to aid in care of the patient HEART Score -> History: Slightly Suspicous, EKG: Normal, Age: 45-64 yrs, Risk Factors: 1 or 2 Risk Factors, Troponin: Baseline Trop <16 ng/L. Resulting HEART Score: 2. Discharge Plan Discharge Patient Disposition: Home Clinical Impression: Chest pain Condition: Stable Prescriptions: No Action enalapril maleate 10 mg tablet 10 mg PO DAILY Discharge Orders: Discharge ED (Routine); Ordered 01/12/24 Ordered By: Maricruz Corona Referrals: Freedom Samuel DO [Primary Care Provider] - Discharge Diet: Advance as tolerated Discharge Activity: Resume usual activity Patient Instructions: Chest Pain (ED) Coding Level of Care Code ED Director Quality Systems for Jaxon Nguyen
[2024-01-12] MEDS: aspirin 81 mg Chew Tablet 324 MG PO (08:08)
[2024-01-12] MEDS: nitroglycerin 0.4 mg sublingual Tablet SUBLINGUAL (08:09)
[2024-01-12 08:17] LABS: Basophils # 0.1 10^3/uL (0.0-0.1); Basophils % 0.7 %; Eosinophils # 0.1 10^3/uL (0.0-0.8); Eosinophils % 0.8 %; Hematocrit 50.6 % (37-53); Lymphocytes # 2.2 10^3/uL (0.8-4.8); Lymphocytes % 30.6 %; Mean Corpuscular HGB Conc 33.8 g/dL (30-55); Mean Corpuscular Volume 85.9 fl (82-101); Mean Platelet Volume 11.2 fL (7.4-10.4); Monocytes # 0.6 10^3/uL (0.2-0.9); Monocytes % 7.8 %; Neutrophils # 4.31 10^3/uL (1.8-7.7); Nucleated Red Blood Cells % 0 %; Platelet Count 264 10^3/cmm (157-399); Red Blood Count 5.89 10^6/uL (3.85-5.65); Red Cell Distribution Width 11.9 % (12.1-15.1); White Blood Count 7.19 10^3/uL (3.29-11.43)
[2024-01-12 08:23] VITALS: BP 127/75; PULSE 85; RESP 12; O2SAT 94
[2024-01-12 08:30] LABS: INR 0.96 (0.8-1.2)
[2024-01-12 08:33] LABS: Troponin(5th) Baseline 7 ng/L (0-15)
[2024-01-12 08:37] LABS: Alanine Aminotransferase 31 U/L (0-41); Albumin Level 4.6 g/dL (3.5-5.2); Alkaline Phosphatase 144 U/L (40-130); Aspartate Amino Transferase 23 U/L (0-40); Blood Urea Nitrogen 11 mg/dL (6-20); Carbon Dioxide 25 mmol/L (22-29); Chloride 103 mmol/L (98-107); Creatinine Clr Calc Pharmacy 105.0753; Globulin 2.5 g/dL (1.3-4.6); Glomerular Filtration Rate 80.4 mL/min (90-130); Glucose 127 mg/dL (65-115); Lipase 80 U/L (13-60); Osmolality Calculated 291 mOsm/kg (285-295); Sodium 140 mmol/L (136-145); Total Bilirubin 0.9 mg/dL (0.15-1.2); Total Protein 7.1 g/dL (6.6-8.7)
[2024-01-12 08:39] LABS: Anion Gap 16.1 (5-19); Potassium 4.1 mmol/L (3.5-5.1)
[2024-01-12 09:48] VITALS: BP 119/68; PULSE 71; RESP 12; O2SAT 92
--- NOTE | 2024-01-12 09:55 | ECG_ITS ---
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 Measurements Intervals [place]ay Rate: 60 P: 21 NE: 166 QRS: 10 QRSD: 88 T: 35 QT: 391 QTc: 393 Interpretive Statements SINUS RHYTHM Compared to ECG 01/12/2024 07:57:22 No significant changes Electronically Signed On 01-15-2024 21:05:52 FRAMING MANAGER by Edis Sabillon M.D. [email or web address]
[2024-01-12 11:08] VITALS: BP 100/68; PULSE 67; O2SAT 95
[2024-01-12 11:48] VITALS: BP 111/77; PULSE 69; RESP 17; O2SAT 97
--- NOTE | 2024-01-13 07:59 | DCPLANNER ---
messaged heart care for er f/u
== END 2024-01-12 11:57 | disposition home or self-care (01) ==
PROVIDERS: Emergency Provider Emergency Medicine; PCP Family Medicine
DX: R07.9 Chest pain, unspecified (principal)
CPT/HCPCS: 71045; 80053; 83690; 84484; 85025; 85610; 93005; 99285

== ENCOUNTER → 2024-03-19 13:34 | Outpatient (BNVA) | payer OTHER, SELFPAY | PROVIDERS: PCP Family Medicine; Visit Provider Internal Medicine Cardiovascular Disease | DX: R07.9 Chest pain, unspecified (principal) | CPT/HCPCS: 93005 ==

== ENCOUNTER 2024-03-29 07:22 | Outpatient (CLI) | payer OTHER, SELFPAY ==
--- NOTE | 2024-03-29 07:40 | ECG_ITS ---
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 Interpretive Statements EXERCISE STRESS TEST EXERCISE DATA: The patient was exercised by Sahil protocol. Baseline heart rate was 68 beats per minute. Baseline blood pressure was 124/82 millimeters of mercury. Maximal predicted heart rate was 174 beats per minute. Maximum heart rate achieved was 163, which was 93% of the maximum predicted heart rate. Maximum blood pressure was 195/99 millimeters of mercury. Total exercise time was 8 minutes. Maximum METs achieved was 10.2. The reason for ending the test was completion of protocol. The patient complained of shortness of breath during the stress test, which then resolved at the end of the test. ELECTROCARDIOGRAM: BASELINE: Showed sinus rhythm, normal axis, no significant ST-T changes at the baseline noted. [] EXERCISE: At the peak exercise level, [] No significant ST-T changes suggestive of ischemia noted. [] RECOVERY: During the recovery period, heart rate dropped appropriately. No significant ST-T changes in the recovery suggestive of ischemia noted. [] CONCLUSION: 1. Exercise capacity is good. 2. Heart rate response was appropriate 3. Blood pressure response was appropriate 4. Symptoms not suggestive of ischemia. 5. Electrocardiogram portion of the stress test was not suggestive of ischemia. 6. Nuclear scan will be documented separately. Electronically Signed On 04-01-2024 10:25:44 LACE INSPECTOR by Gallito Torres M.D. [id number]
[2024-03-29 07:44] VITALS: BMI 35.5
[2024-03-29 09:24] VITALS: BP 139/82; PULSE 99
--- NOTE | 2024-03-29 10:03 | PC.NURSE ---
This nurse was informed by nuclear medicine that the patients stress images were not satisfactory d/t the IV going bad during the stress injection of nuclear imaging. Sandra Ray, [facility], informed the patient that he would have to come back for a stress only. The patient understood and has agreed to be here tomorrow 03/30/2024 at 0645.
== END 2024-03-29 07:23 | disposition home or self-care (01) ==
LOC: CDL 07:23
PROVIDERS: PCP Family Medicine; Visit Provider Internal Medicine Cardiovascular Disease
DX: R07.9 Chest pain, unspecified (principal)
CPT/HCPCS: 36415; 78452; 93017; 96374; A9500

== ENCOUNTER 2024-03-30 06:37 | Outpatient (CLI) | payer OTHER, SELFPAY ==
--- NOTE | 2024-03-30 | ECG_ITS ---
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 Interpretive Statements EXERCISE MIBI EXERCISE DATA: The patient was exercised by Sahil protocol. Baseline heart rate was 79 beats per minute. Baseline blood pressure was 134/83 millimeters of mercury. Maximal predicted heart rate was 174beats per minute. Maximum heart rate achieved was 165 which was 94% of the maximum predicted heart rate. Maximum blood pressure was 196/92 millimeters of mercury. Total exercise time was 8 minutes and 17 seconds. Maximum METs achieved was 10.2. The reason for ending the test was completion of protocol. The patient complained of shortness of breath during the stress test, which then resolved at the end of the test. ELECTROCARDIOGRAM: BASELINE: Showed sinus rhythm, normal axis, no significant ST-T changes at the baseline noted. [] EXERCISE: At the peak exercise level, [] No significant ST-T changes suggestive of ischemia noted. PVCs seen [] RECOVERY: During the recovery period, heart rate dropped appropriately. No significant ST-T changes in the recovery suggestive of ischemia noted. [] CONCLUSION: 1. Exercise capacity is good. 2. Heart rate response was appropriate 3. Blood pressure response was appropriate. 4. Symptoms not suggestive of ischemia. 5. Electrocardiogram portion of the stress test was not suggestive of ischemia. 6. Nuclear scan will be documented separately. Electronically Signed On 04-01-2024 10:21:10 TELEVISION ACTOR by Gallito Torres M.D. [email or web address]
--- NOTE | 2024-03-30 06:40 | SUR.PREOP ---
PRE STESS NOTE Patient here for completion of yesterdays exam. Here today to do the exercise stress only exam. Repeated d/t STRESS injection infiltration yesterday.
[2024-03-30 06:44] VITALS: BMI 35.5
--- NOTE | 2024-03-30 06:46 | NMCV_ITS ---
NM gabe perf SPECT r/s* [id number] James Rdz Age: 48 Gender: M : 1975 Exam Date: 03/30/2024 07:11 Ordering Phys: Herbie Kendall MD ([email or web address]) Technologist: JAY Bay Exam Location: [facility] Indications: cp STRESS TEST Please see separate stress test report in [facility] for full findings IMAGE PROTOCOL Rest/Stress 2 Exercise Day Radiopharmaceutical Dose (mCi) Administration Site Administered by Rest: Tc-99m 10.8 IV JAY Bay Sestamibi Stress:Tc-99m 31.5 IV Rubia West, TRANSISTOR TESTER Sestamibi Rest: 29-Mar-2024 60 Discovery 630 Stress: 30-Mar-2024 15 Discovery 630 Radiopharmaceutical was injected at 89% maximum heart rate. Images obtained in supine and prone position. SPECT RESULTS Technical Quality: Good Raw Data Analysis: Normal Image Corrections: No attenuation or motion correction applied Summed Stress Score: 1 Summed Rest Score: 6 Summed Difference Score: 0 PERFUSION FINDINGS Medium sized area of fixed perfusion defect noted in basal distal inferior wall suggestive of old myocardial infarction versus scarring. FUNCTIONAL RESULTS (calculated via Gated SPECT) Stress Image LV EF (%): 78 Stress EDV (mL):69 TID: 0.7 Stress ESV (mL):15 FUNCTIONAL FINDINGS: There is normal left ventricular systolic function. IMPRESSIONS Medium sized area of old myocardial infarction versus scarring noted in basal distal inferior wall without dinorah-infarct ischemia. It is suggestive of possible old AL however in the absence of wall motion abnormality cannot rule out artifact. This study is negative for ischemia. Herbie Kendall MD (Electronically Signed) Final Date: 30 March 2024 15:23 S
[2024-03-30 07:23] VITALS: BP 174/84; PULSE 111
== END 2024-03-30 06:38 | disposition home or self-care (01) ==
LOC: CDL 06:37
PROVIDERS: PCP Family Medicine; Visit Provider Internal Medicine Cardiovascular Disease
DX: R07.9 Chest pain, unspecified (principal); R93.89 Abnormal findings on diagnostic imaging of other specified body structures
CPT/HCPCS: 78452; A9500

== ENCOUNTER → 2024-08-21 07:40 | Outpatient (BNVA) | payer OTHER, SELFPAY | PROVIDERS: PCP Family Medicine; Visit Provider Family Medicine | DX: I10 Essential (primary) hypertension (principal) | CPT/HCPCS: 80053; 80061; 83690; 85025 ==